=== PATIENT | male | born 1945 | race Caucasian/White ===

== ENCOUNTER 2019-06-18 15:13 | Emergency (ER) | payer OTHER, SELFPAY ==
--- NOTE | 2019-06-18 15:46 | ED.GENADUL_ITS ---
Discharge Plan Disposition Patient Disposition: HOME Condition: Stable Discharge Details Chief Complaint: Urinary Clinical Impression: Multiple renal calculi Primary Care Provider: Judy,Local ED Provider: Maki Chester Home Meds and New Rx's Prescriptions: New tamsulosin [Flomax] 0.4 mg capsule 0.4 mg PO DAILY Qty: 7 RF: 0 Continued atorvastatin [Lipitor] 10 MG tablet 10 mg PO DAILY RF: 0 tussinoex 1 tsp PO DAILY RF: 0 multivitamin [Daily Multi-Vitamin] 1 EACH tablet 1 tab PO DAILY RF: 0 celecoxib [Celebrex] 200 MG capsule 200 mg PO DAILY RF: 0 amlodipine 5 MG tablet 1 tab PO HS RF: 0 aspirin 81 MG tablet,chewable 81 mg PO DAILY RF: 0 coenzyme Q10 [CoQ-10] 100 MG capsule 200 mg PO DAILY RF: 0 Discharge Instructions Instructions: Kidney Stones (ED), How to Strain Your Urine (ED) Additional Instructions: Encourage hydration. Tylenol and/or Ibuprofen as needed for discomfort. Please take Flomax until symptoms have resolved. If you develop fevers/chills, increased pain, nausea/vomiting or other new/worsening symptoms please seek care urgently once again. service parts coordinator will contact you regarding follow up with primary care and urologist. Discharge Data Discharge Date/Time-TO BE ENTERED AT DEPARTURE: 06/18/19 18:44 Medical Decision Making Patient 74 year old male presenting with concerns for UTI. UA concerning for large amount of blood, otherwise without abnormality. Discussed with patient. Concerned that patient is male, has had recurrent UTIs with blood that he may have alternative dx. Plan for CT to evaluate for possible nephrolithiasis. He believes he has had stone in the past. No CVA tenderness, denies pain at this time. Will preform a prostate exam to evaluate for possible prostatitis. He report hx of enlarge prostate, no previous infections. Will obtain blood work to evaluate for possible Prostate exam benign with no enlargment, prostate is not boggy, no tenderness. Exam normal. Labs without significant findings. BUN mildly elevated at 20. No leukocytosis. CT reviewed by radiologist: Liver: 2.7 cm cyst in the liver Gallbladder and bile ducts: Normal. No calcified stones. No ductal dilation. Pancreas: Normal. No ductal dilation. Spleen: Normal. No splenomegaly. Adrenals: Normal. No mass. Kidneys and ureters: Nonobstructing renal calculi bilaterally Multiple distal right ureteral calculi. 6.4 mm in 3.2 mm. They cause dilatation of the RIGHT ureter, and RIGHT collecting system. The RIGHT kidney is edematous and there is RIGHT perirenal stranding. 11 mm cyst in the right kidney Stomach and bowel: Extensive diverticulosis of the rectosigmoid. Mild pericolonic inflammatory changes may represent mild diverticulitis in the appropriate clinical setting. Appendix: No evidence of appendicitis. Intraperitoneal space: Normal. No free air. No significant fluid collection. Vasculature: Normal. No abdominal aortic aneurysm. Lymph nodes: Normal. No enlarged lymph nodes. Bladder: Unremarkable as visualized. Reproductive: Unremarkable as visualized. Bones/joints: No acute fracture. No dislocation. Soft tissues: Unremarkable. IMPRESSION: Multiple distal right ureteral calculi. 6.4 mm in 3.2 mm. They cause dilatation of the RIGHT ureter, and RIGHT collecting system. The RIGHT kidney is edematous and there is RIGHT perirenal stranding. Extensive diverticulosis of the rectosigmoid. Milddiverticulitis in the appropriate clinical setting. Patient is not endorsing any abdominal pain, diverticulitis does not correlate clinically. Plan to treat with Flomax and request f/u with urology. Patient does not have PCP locally, [facility] here. Have asked acute care clinical nurse specialist to help arrange for f/u with PCP as well. Consulted with radiologist regarding the kidney being edematous and she advised that this is from the stones. discussed findings with [facility] patient at length, treatment as above. He was given strict return precautions, in particular signs of infection. Advised NSAIDS for discomfort. He was given strainer by nursing staff and instructions on how to use this. Given first dose of flomax while here. All of his questions and concerns were addressed, he is in agreement with this plan. HPI General Mode of arrival: ambulatory . Date/Time Provider Initiated Documentation: 06/18/19 15:27 . Limitations to Documentation: no limitations . Information obtained by: patient, family (accompanied by ) and RN notes reviewed . HPI Narrative: Patient is a 74 year old male presenting today with c/c of dysurea x 3 days. Symptoms have been increasing. Also endorsing increased frequency and urgency. Patient was seen here 2 years ago my myself with similar complaints. States that he has had a total of 3 UTI, also when visiting this area in the summer and under stress. Denies GI upset, no change in bowel habits, no testicular pain, no abdominal pain, no back pain, no fevers/chills. Related Data Home Medications Medication Instructions Recorded Confirmed Tussinoex 1 tsp PO DAILY 06/07/14 06/18/19 atorvastatin [Lipitor] 10 mg PO DAILY tab-cap 06/07/14 06/18/19 amlodipine 1 tab PO HS 08/02/17 06/18/19 aspirin 81 mg PO DAILY 08/02/17 06/18/19 celecoxib [Celebrex] 200 mg PO DAILY 08/02/17 06/18/19 coenzyme Q10 [CoQ-10] 200 mg PO DAILY 08/02/17 06/18/19 multivitamin [Daily Multi-Vitamin] 1 tab PO DAILY 08/02/17 06/18/19 tamsulosin [Flomax] 0.4 mg PO DAILY #7 cap 06/18/19 Previous Rx's Medication Instructions Recorded tamsulosin [Flomax] 0.4 mg PO DAILY #7 cap 06/18/19 Allergies Allergy/AdvReac Type Severity Reaction Status Date / Time No Known Allergies Allergy Unverified 06/18/19 15:56 Review of Systems Constitutional Reports as per HPI, Denies chills, Denies fever(s) and Denies poor appetite Cardiovascular Denies chest pain Respiratory Denies cough Gastrointestinal Denies abdominal pain, Denies change in bowel habits, Denies nausea and Denies vomiting Genitourinary Reports as per HPI Musculoskeletal Reports as per HPI and Denies back pain Integumentary/Breasts Reports as per HPI and Denies rash PFSH Family History FAMILY HISTORY Diabetes Essential hypertension Personal history of malignant neoplasm Heart disease Hyperlipidemia Kidney stone Stroke Social History Smoking/Tobacco Use Status: Former Tobacco Use Substance use type: does not use Do you feel safe at home: Yes Do you feel safe in your relationship?: Yes Exam Const General: cooperative, healthy appearing, comfortable, no acute distress, well developed and well groomed Nutritional Appearance: average body habitus and well nourished Orientation: alert and awake Resp Effort & Inspection: normal respiratory effort and no respiratory distress Auscultation: clear to auscultation bilaterally, no rales, no rhonchi and no wheezes Cardio Rate: regular rate Rhythm: regular rhythm Heart Sounds: S1 normal and S2 normal GI Inspection: normal to inspection Palpation: soft, no hepatosplenomegaly, not firm, no guarding, not rigid and nontender Back/Spine/Pelvis Back: no CVA tenderness Skin General skin exam: no rashes or lesions noted Trauma: no lacerations or abrasions Neuro General: alert and awake Cognition: normal cognition Speech: speech normal Gait: normal gait Psych Appearance: grossly normal and well kempt Mental Status: mental status grossly normal Speech and Movement: speech and movement normal
[2019-06-18 15:52] VITALS: BP 154/80; PULSE 80; RESP 18; TEMP 36.8; O2SAT 93
[2019-06-18 16:20] LABS: Bilirubin Negative (Negative); Blood Large (Negative); Clarity Clear (Clear); Glucose Negative (Negative); Ketones Negative (Negative); Leukocyte Esterase Negative (Negative); Nitrite Negative (Negative); Specific Gravity 1.025 (1.005-1.025); Urobilinogen 0.2 EU/dL (Up TO 0.2)
[2019-06-18 16:33] LABS: Bacteria Rare HPF (Negative); C & S Indicated? No; Casts Negative LPF (Negative); Crystals Negative HPF (Negative); Epithelial Cells Rare HPF (Negative); Mucus Moderate (Negative); Other Cells Negative (Negative); RBC >50 (0-2); WBC Negative HPF (0-5)
--- NOTE | 2019-06-18 16:52 | DI.CT_ITS ---
SYMPTOM/DIAGNOSIS: BLOOD IN URINE, DYSURIA ABDOMINAL AND PELVIC CT: 06/18 CT examination of the abdomen and pelvis was performed without contrast administration. Visualized portions of the liver are unremarkable except for apparent 2.5 cm in diameter left hepatic cyst. Gallbladder and bile ducts are CT normal. Pancreas unremarkable. Spleen unremarkable. Superior portion of spleen and liver not included on imaging field. Abdominal aorta is ectatic and maximal aortic diameter is about 2.9 cm in AP diameter. Ectasia of the right common iliac artery is also noted which measures up to about 22 mm in diameter. No left common iliac aneurysm. No abdominal or pelvic adenopathy. Small fat containing umbilical hernia noted. Small fat containing inguinal hernias noted. Appendix is normal. Colonic diverticulosis without evidence of diverticulitis. Adrenals appear normal. There are multiple bilateral renal calculi. There is mild right hydronephrosis and hydroureter to the level of the distal ureter where there are two stones, the largest measuring up to about 7 mm in diameter on coronal images, and the smaller measuring about 3 mm in diameter. CONCLUSION: 1. Obstructing distal right ureteral calculi. 2. Multiple bilateral renal calculi 3. Borderline abdominal aortic aneurysm, 2.8 cm 4. 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
[2019-06-18 17:22] LABS: Abs Immature Grans 0.02 k/cumm (0.0-0.09); Absolute Basophil Count 0.04 k/cumm (0.0-0.2); Absolute Eosinophil Count 0.25 k/cumm (0.0-0.7); Absolute Lymphocyte Count 1.84 k/cumm (1.2-3.4); Absolute Monocyte Count 1.34 k/cumm (0.11-0.7); Absolute Neutrophil Count 6.09 k/cumm (1.2-6.7); Basophils % 0.4; Eosinophils % 2.6; HCT 44.9 % (40.0-50.0); HGB 15.6 g/dL (13.5-17.5); Immature Grans % 0.2; Lymphocytes % 19.2; Mean Corp. HGB Concentration 34.7 g/dL (32.0-36.0); Mean Corpuscular Hemoglobin 30.4 pg (27.0-33.0); Mean Corpuscular Volume 87.4 fL (80-95); Mean Platelet Volume 9.6 fL (8.0-11.0); Neutrophils % 63.6; Platelet Count 310 x1000/uL (130-400); RBC 5.14 m/cumm (4.50-6.00); RBC Distribution Width 13.7 % (11.8-14.1); White Blood Cell Count 9.58 k/cumm (4.4-10.8)
[2019-06-18 17:39] LABS: ALT 42 U/L (12-78); AST 16 U/L (15-37); Albumin 4.3 g/dL (3.4-5.0); Alkaline Phosphatase 91 U/L (46-116); Anion Gap 14.2 mmol/L (3-11); BUN 20 mg/dL (7-18); Bilirubin, Total 0.4 mg/dL (0.2-1.0); CO2 23.8 mmol/L (21.0-32.0); CREATININE 0.99 mg/dL (0.70-1.30); Calcium 9.1 mg/dL (8.5-10.1); Chloride 104 mmol/L (98-107); Glucose 109 mg/dL (70-100); Sodium 142 mmol/L (136-145); Total Protein 7.8 g/dL (6.4-8.2)
--- NOTE | 2019-06-18 17:46 | DI.VRAD_ITS ---
Addendum created by Ivory Pavon MD on 06/18/2019 6:13:11 PM EDT THIS REPORT CONTAINS FINDINGS THAT MAY BE CRITICAL TO PATIENT CARE. The findings were verbally communicated via telephone conference with JERSON GRANT at 6:12 PM EDT on 06/18/2019. The findings were acknowledged and understood. Initial report created on 06/18/2019 5:46:13 PM EDT EXAM: CT Abdomen and Pelvis Without Contrast EXAM DATE/TIME: 06/18/2019 4:53 PM CLINICAL HISTORY: 74 years old, male; Other: Blood in urine, dysurea TECHNIQUE: Imaging protocol: Axial computed tomography images of the abdomen and pelvis without contrast. Coronal and sagittal reformatted images were created and reviewed. COMPARISON: No relevant prior studies available. FINDINGS: Liver: 2.7 cm cyst in the liver Gallbladder and bile ducts: Normal. No calcified stones. No ductal dilation. Pancreas: Normal. No ductal dilation. Spleen: Normal. No splenomegaly. Adrenals: Normal. No mass. Kidneys and ureters: Nonobstructing renal calculi bilaterally Multiple distal right ureteral calculi. 6.4 mm in 3.2 mm. They cause dilatation of the RIGHT ureter, and RIGHT collecting system. The RIGHT kidney is edematous and there is RIGHT perirenal stranding. 11 mm cyst in the right kidney Stomach and bowel: Extensive diverticulosis of the rectosigmoid. Mild pericolonic inflammatory changes may represent mild diverticulitis in the appropriate clinical setting. Appendix: No evidence of appendicitis. Intraperitoneal space: Normal. No free air. No significant fluid collection. Vasculature: Normal. No abdominal aortic aneurysm. Lymph nodes: Normal. No enlarged lymph nodes. Bladder: Unremarkable as visualized. Reproductive: Unremarkable as visualized. Bones/joints: No acute fracture. No dislocation. Soft tissues: Unremarkable. IMPRESSION: Multiple distal right ureteral calculi. 6.4 mm in 3.2 mm. They cause dilatation of the RIGHT ureter, and RIGHT collecting system. The RIGHT kidney is edematous and there is RIGHT perirenal stranding. Extensive diverticulosis of the rectosigmoid. Mild pericolonic inflammatory changes may represent mild diverticulitis in the appropriate clinical setting. Dictated and Authenticated by: Ivory Pavon MD. Ordering:SORAYA Gambino MD
[2019-06-18] MEDS: Normal Saline 1,000 ML 1000 ML IV (17:58)
[2019-06-18] MEDS: Tamsulosin 0.4 MG CAPCR PO (18:25)
--- NOTE | 2019-06-18 18:38 | NUR.NOTE ---
Nursing Note: Faxed referral to Urology at [facility] for follow up. Referral given to Care Managers for patient to get a PCP in the area. Katheryn Kaur.
[2019-06-18 18:45] VITALS: BP 146/83; PULSE 75; RESP 14; TEMP 36.6; O2SAT 96
--- NOTE | 2019-06-19 10:30 | NUR.NOTE ---
referral faxed [facility] Dr Kang.Nursing Note:
== END 2019-06-18 18:44 | disposition home or self-care (01) ==
PROVIDERS: Emergency Provider Physician Assistant
DX: N20.2 Calculus of kidney with calculus of ureter (principal); N28.1 Cyst of kidney, acquired; K76.89 Other specified diseases of liver; Z87.440 Personal history of urinary (tract) infections
CPT/HCPCS: 36415; 80053; 96360; 99284; 74176; 81003; 81015; 85025

== ENCOUNTER 2019-07-19 13:22 | Outpatient (REF) | payer OTHER, SELFPAY ==
[2019-07-31 12:45] LABS: Interpretation See Comments; Source: Passed Stone
== END 2019-07-19 13:42 ==
LOC: LBN 13:22
PROVIDERS: Visit Provider Nurse Practitioner Gerontology
DX: N13.2 Hydronephrosis with renal and ureteral calculous obstruction (principal)
CPT/HCPCS: 82365